=== PATIENT | female | born 1950 | race Caucasian/White ===

== ENCOUNTER 2024-11-18 06:26 | Day surgery (SDC) | payer MEDICARE, OTHER ==
[2024-11-18 09:45] VITALS: TEMP 97.6
== END 2024-11-18 10:00 | disposition home or self-care (01) ==
LOC: EDSEX → DS 06:26
PROVIDERS: ATTEND Surgery
DX: Z12.11 Encounter for screening for malignant neoplasm of colon (principal); K30 Functional dyspepsia; K44.9 Diaphragmatic hernia without obstruction or gangrene; K29.80 Duodenitis without bleeding; G89.29 Other chronic pain; K64.8 Other hemorrhoids; K29.70 Gastritis, unspecified, without bleeding; I10 Essential (primary) hypertension; Z87.440 Personal history of urinary (tract) infections; Z79.899 Other long term (current) drug therapy; Z98.890 Other specified postprocedural states
CPT/HCPCS: 88312-TC; 88313-TC; A4663; J7120